=== PATIENT | male | born 1960 | race Caucasian/White ===

== ENCOUNTER 2019-03-26 05:55 | Emergency (ER) | payer BC, SELFPAY ==
--- NOTE | ~2019-03-26 | XR_ITS ---
EXAMINATION: XR chest 1V portable DATE: 03/26/2019 06:28 INDICATION: Arrhythmia, cough and wheezing TECHNIQUE: frontal view of the chest was obtained. COMPARISON: Chest radiograph dated 02/10/2017 FINDINGS: The lungs remain clear with no focal airspace opacities, pulmonary edema, pleural effusion or pneumot horax. The cardiomediastinal silhouette is normal. Visualized bones and soft tissues are unremarkable . IMPRESSION: 1. No acute cardiopulmonary disease. Reviewed, dictated and finalized at location A. RIALS MANAGEMENT MANAGER
[2019-03-26 06:00] VITALS: BP 101/53; PULSE 165; RESP 20; TEMP 36.4; O2SAT 96
--- NOTE | 2019-03-26 06:00 | ECG_ITS ---
Measurements Intervals [place] Rate: 158 P: UT: 0 QRS: -43 QRSD: 90 T: 26 QT: 272 QTc: 442 Interpretive Statements ATRIAL FIBRILLATION WITH RAPID VENTRICULAR RESPONSE LEFT AXIS DEVIATION VOLTAGE CRITERIA FOR LVH POOR R WAVE PROGRESSION, ANTERIOR LEADS ABNORMAL ECG Electronically Signed On 03-26-2019 8:31:32 MILLWRIGHT INSTRUCTOR by Andre Justin D.O.
--- NOTE | 2019-03-26 06:19 | ED.ARRPALP ---
HPI - Arrhythmia/Palpitations General Chief Complaint: Chest Pain <Pancho Kaur MD - Last Filed: 03/26/19 06:38> Stated Complaint: Palpitations <Pancho Kaur MD - Last Filed: 03/26/19 06:38> Time Seen by Provider: 03/26/19 06:00 <Pancho Kaur MD - Last Filed: 03/26/19 06:38> Source: patient and family <Pancho Kaur MD - Last Filed: 03/26/19 06:38> Mode of arrival: ambulatory <Pancho Kaur MD - Last Filed: 03/26/19 06:38> Limitations: no limitations <Pancho Kaur MD - Last Filed: 03/26/19 06:38> History of Present Illness HPI narrative: 58-year-old man with a history of atrial fibrillation status post 2 ablations and asthma comes in today complaining of rapid heart rate that has been intermittent for several days but has been constant since yesterday. Five or 6 days ago he was diagnosed with influenza and had a cough, fever. He has now developed wheezing, some mild chest pressure radiating to his neck, and fatigue. <Pancho Kaur MD - Last Filed: 03/26/19 06:38> MD complaint: rapid heart beat, heart racing and palpitations <Pancho Kaur MD - Last Filed: 03/26/19 06:38> Onset (ago): day(s) (2) <Pancho Kaur MD - Last Filed: 03/26/19 06:38> Duration: intermittent <Pancho Kaur MD - Last Filed: 03/26/19 06:38> Severity: moderate <Pancho Kaur MD - Last Filed: 03/26/19 06:38> Context: occurred during rest <Pancho Kaur MD - Last Filed: 03/26/19 06:38> Arrhythmia history: atrial fibrillation and history of electrical cardioversion <Pancho Kaur MD - Last Filed: 03/26/19 06:38> Associated symptoms: chest pain and cough <Pancho Kaur MD - Last Filed: 03/26/19 06:38> Treatments prior to arrival: beta-rachele (takes daily and took this am) <Pancho Kaur MD - Last Filed: 03/26/19 06:38> Related Data Home Medications: Home Medications Medication Instructions Recorded Confirmed cyclobenzaprine 10 mg PO TID PRN #0 01/29/19 03/26/19 fluticasone propionate 1 spray INTRANASAL BID PRN #0 01/29/19 03/26/19 montelukast [Singulair] 10 mg PO DAILY 01/29/19 03/26/19 multivitamin,ub-wrhl-yfaedogl 1 tablet PO DAILY #0 01/29/19 03/26/19 [Complete Multivitamin] spironolactone 25 mg tablet 25 mg PO DAILY 02/12/19 03/26/19 budesonide-formoterol HFA 80 2 puff INHALATION BID gm 03/21/19 03/26/19 mcg-4.5 mcg/actuation aerosol inhaler carvedilol 6.25 mg tablet 6.25 mg PO BID tablet 03/21/19 03/26/19 rivaroxaban 20 mg tablet 20 mg PO DAILY tablet 03/21/19 03/26/19 <Pancho Kaur MD - Last Filed: 03/26/19 06:38> Allergies/Adverse Reactions: Allergies Allergy/AdvReac Type Severity Reaction Status Date / Time SEAFOOD Allergy Severe Swelling Uncoded 03/05/19 09:10 <Pancho Kaur MD - Last Filed: 03/26/19 06:38> Review of Systems Constitutional: Constitutional: Denies chills, Reports fatigue, Denies fever(s) and Denies weakness <Pancho Kaur MD - Last Filed: 03/26/19 06:38> Eyes: Eyes: Denies change in vision and Denies photophobia <Pancho Kaur MD - Last Filed: 03/26/19 06:38> ENT: Denies dysphagia, Reports nasal congestion and Denies sore throat <Pancho Kaur MD - Last Filed: 03/26/19 06:38> Cardiovascular: Cardiovascular: Reports as per HPI, Reports chest pain and Reports radiating jaw, neck or arm pain <Pancho Kaur MD - Last Filed: 03/26/19 06:38> Respiratory: Respiratory: Reports chest congestion, Reports cough, Reports dyspnea and Reports wheezing <Pancho Kaur MD - Last Filed: 03/26/19 06:38> Gastrointestinal: Gastrointestinal: Denies abdominal pain, Denies diarrhea, Denies nausea and Denies vomiting <Pancho Kaur MD - Last Filed: 03/26/19 06:38> Genitourinary: Genitourinary: Denies dysuria and Denies urinary frequency <Pancho Kaur MD - Last Filed: 03/26/19 06:38> Musculosk
[2019-03-26 06:32] LABS: Basophils Absolute Auto 0.02 K/mm3 (0.00-0.10); Basophils Percent Auto 0.3 % (0.0-1.0); Eosinophils Percent Auto 1.3 % (1.0-6.0); Hematocrit 43.5 % (40.0-54.0); Hemoglobin 14.4 g/dL (14.0-18.0); Immature Granulocyte Absolute 0.03 K/mm3 (0.00-0.00); Immature Granulocyte Percent A 0.4 % (0.0-0.0); Lymphocytes Absolute Auto 2.36 K/mm3 (1.10-4.50); Lymphocytes Percent Auto 31.4 % (18.0-42.0); Mean Corpuscular HGB Conc 33.1 g/dL (32.0-36.0); Mean Corpuscular Hemoglobin 28.5 pg (27.0-31.0); Mean Platelet Volume 10.2 fl (8.7-11.0); Monocytes Absolute Auto 0.85 K/mm3 (0.10-0.90); Monocytes Percent Auto 11.3 % (2.0-11.0); Neutrophils Absolute Auto 4.2 K/mm3 (1.7-7.2); Neutrophils Percent Auto 55.3 % (50.0-70.0); Platelet Count Result 198 K/mm3 (150-420); Red Blood Count 5.06 M/mm3 (4.70-6.10); Red Cell Distribution Width 13.4 % (11.6-14.4); White Blood Count 7.5 K/mm3 (4.8-10.8)
[2019-03-26 06:42] LABS: Add Urine Microscopic? NO; Appearance Urine Clear (Clear); Bilirubin Urine Negative (Negative); Blood Urine Negative (Negative); Color Urine Yellow (Yellow); Glucose Urine UA Negative (Negative); Ketones Urine Negative (Negative); Leukocyte Esterase Ur Negative (Negative); Nitrate Urine Negative (Negative); Protein Urine Negative (Negative); Specific Grav Ur 1.015 (1.010-1.020); Urobilinogen Urine 0.2 mg/dL (0.2-1.0)
[2019-03-26 06:44] LABS: Partial Thromboplastin Time 32.7 SEC (22.3-31.6); Prothrombin Time 10.8 Seconds (9.64-11.0)
[2019-03-26 06:50] LABS: Alanine Aminotransferase 34 U/L (16-63); Albumin Level 3.6 g/dL (3.4-5.0); Alkaline Phosphatase 76 U/L (46-116); Anion Gap 15.4 mmol/L (7-16); Aspartate Amino Transferase 20 U/L (15-37); Bilirubin,Total 0.4 mg/dL (0.00-1.00); Blood Urea Nitrogen 15 mg/dL (7-18); Calcium 9.1 mg/dL (8.5-10.1); Carbon Dioxide 24 mmol/L (21-32); Chloride 106 mmol/L (98-108); Estimated CRCL calculation 104 ml/min; Estimated Glomerular Filt Rate > 60; Glucose 134 mg/dL (70-99); Osmolality Calculated 294 mOsm/kg (285-295); Potassium 4.4 mmol/L (3.5-5.1); Sodium 141 mmol/L (136-145); Total Protein 8.4 g/dL (6.4-8.2); Troponin I < 0.02 ng/mL (0.00-0.056)
[2019-03-26 07:06] VITALS: BP 119/59; PULSE 116; RESP 18; O2SAT 97
[2019-03-26 07:12] LABS: Lactic Acid 1.8 mmol/L (0.4-2.0)
--- NOTE | 2019-03-26 07:19 | PC.NURSE ---
ERP spoke to pt. re: Labs and POC. Will place call to pts. application technical designer Dr. Heart in [place] for consult. Call placed to [facility]
[2019-03-26 08:05] VITALS: BP 98/51; PULSE 117; RESP 18; O2SAT 95
--- NOTE | 2019-03-26 08:07 | PC.NURSE ---
Call back from [facility] business services sales representative Dr. Heart. Spoke to ERP Dr. Peña. Will transfer to [facility]. Awaiting call back from hospitalist for acceptance and transfer.
--- NOTE | 2019-03-26 08:13 | PC.NURSE ---
Call back from Dr. Paulson at [facility]. Accepts for transfer. Paperwork signed. Awaiting call for bed placement.
--- NOTE | 2019-03-26 08:28 | PC.NURSE ---
Call back [facility], report given to Anjana for transfer. Call paged to [facility] for transfer.
[2019-03-26 08:29] VITALS: BP 96/53; PULSE 124; RESP 20; O2SAT 97
--- NOTE | 2019-03-26 08:41 | PC.NURSE ---
Call page to [facility] for pt. transfer. Awaiting [facility] for transfer. Pt. resting, VSS. No c/o.
[2019-03-26 08:55] VITALS: BP 86/59; PULSE 124; RESP 20; O2SAT 97
[2019-03-26] MEDS: SODIUM CHLORIDE 0.9% IV 1,000 ML 125 ML IV CONT (09:01)
--- NOTE | 2019-03-26 09:03 | PC.NURSE ---
Report given to [facility] for transfer. IVF NS odered per ERP to infuse during transfer and titrate Cardizem gtt as needed for pressure. Pt. stable, no c/o ati time of transfer.
== END 2019-03-26 09:04 | disposition short-term general hospital (02) ==
PROVIDERS: Emergency Provider Emergency Medicine; PCP Family Medicine
DX: I48.91 Unspecified atrial fibrillation (principal); Z79.01 Long term (current) use of anticoagulants
CPT/HCPCS: 36415; 71045; 80053; 81003; 83605; 83880; 84484; 85025; 85610; 85730; 87040; 93005; 96365; 96366; 99285; J7030

== ENCOUNTER 2019-06-22 09:46 | Outpatient (CLI) | payer BC, SELFPAY ==
--- NOTE | ~2019-06-22 | MR_ITS ---
EXAMINATION: MR ankle LT wo con DATE: 06/22/2019 11:10 INDICATION: Partial tear of the plantar fascia. TECHNIQUE: Magnetic resonance imaging (MRI) of the left ankle was performed without intravenous contr ast. Sequences included sagittal PD-weighted FS FSE, sagittal PD-weighted FSE, coronal PD-weighted FS FSE, coronal PD-weighted FSE, axial PD-weighted FS FSE, and axial PD-weighted FSE. COMPARISON: None. FINDINGS: Medial ankle ligaments: The superficial and deep components of the deltoid ligament are intact. Lateral ankle ligaments: There is a complete tear of anterior talofibular ligament, which is lax with increased signal intensi ty. Calcaneofibular ligament is small. Posterior talofibular ligament is normal. There are changes of prior sprain of anterior tibiofibular ligament characterized by thickening and increased signal inte nsity. Posterior tibiofibular ligament is normal. Tendons: The medial and anterior ankle tendons are normal. There is mild peroneus longus tendinopathy. There i s a longitudinal split tear of peroneus brevis tendon. There is mild Achilles tendinopathy. Plantar fascia: There is severe thickening of central and lateral bands of plantar fascia with increased signal inten sity, consistent with fasciitis. There is bone marrow edema at the calcaneal attachment. Bones/other: Bone alignment is normal. No fracture. The talar dome is normal. Fluid: There is no joint effusion. IMPRESSION: 1. Plantar fasciitis. Reviewed, dictated and finalized at location A. IMPRESSION: 1. Plantar fasciitis.
== END 2019-06-22 09:47 | disposition home or self-care (01) ==
PROVIDERS: PCP Family Medicine; Visit Provider Podiatrist Foot & Ankle Surgery
DX: S96.912A Strain of unspecified muscle and tendon at ankle and foot level, left foot, initial encounter (principal)
CPT/HCPCS: 73721

== ENCOUNTER 2019-07-04 00:26 | Outpatient (CLI) | payer BC, SELFPAY ==
[2019-07-04 18:06] LABS: SARS-CoV-2 RNA PCR Negative
== END 2019-07-04 00:27 | disposition home or self-care (01) ==
LOC: ANHCOVIDDT 00:26
PROVIDERS: PCP Family Medicine; Visit Provider Podiatrist Foot & Ankle Surgery
DX: Z01.812 Encounter for preprocedural laboratory examination (principal); Z20.828 Contact with and (suspected) exposure to other viral communicable diseases
CPT/HCPCS: 87635; C9803; U0003

== ENCOUNTER 2019-07-04 08:01 | Outpatient (CLI) | payer BC, SELFPAY ==
[2019-07-04 08:50] LABS: Blood Urea Nitrogen 17 mg/dL (9-20); Carbon Dioxide 28 mmol/L (22-30); Chloride 105 mmol/L (98-107); Estimated Glomerular Filt Rate > 60; Glucose 113 mg/dL (75-110); Potassium 4.6 mmol/L (3.4-5.0); Sodium 139 mmol/L (137-145)
== END 2019-07-04 08:02 | disposition home or self-care (01) ==
LOC: ANHSURGERY 08:04
PROVIDERS: Anesthesiology; PCP Family Medicine; Visit Provider Podiatrist Foot & Ankle Surgery
DX: Z79.899 Other long term (current) drug therapy (principal)
CPT/HCPCS: 36415; 80048

== ENCOUNTER 2019-07-06 00:47 | Day surgery (SDC) | payer BC, SELFPAY ==
[2019-07-03 13:41] VITALS: BMI 39.4
[2019-07-06] VITALS (7 sets, daily range): BP systolic 123–140; BP diastolic 57–85; PULSE 58–79; RESP 10–16; TEMP 36.8–37.2; O2SAT 17–99
[2019-07-06] MEDS: LACTATED RINGERS 1,000 ML 30 ML IV CONT (06:40)
--- NOTE | 2019-07-06 07:04 | WPDANESEPPF ---
Anes - Initial Pre Proc Eval Procedure: Operation Date: 07/06/19 07:30 Proposed Procedures p Partial Plantar Fasciectomy Left Foot - Toni Momin JR, MD Date/Time: 07/06/19 07:04 Surgeon: Toni Momin JR, MD Pre Op Diagnosis: Proximal Plantar Fasciitis Left Foot Patient Data Age: 58 Gender: M Height: 5 ft 10 in Weight: 124.74 kg Allergies Allergy/AdvReac Type Severity Reaction Status Date / Time SEAFOOD Allergy Severe Swelling Uncoded 07/03/19 13:42 Home Medications Medication Instructions Recorded Confirmed Type fluticasone propionate 1 spray INTRANASAL BID PRN #0 01/29/19 07/03/19 History montelukast [Singulair] 10 mg PO QPM 01/29/19 07/03/19 History multivitamin,sx-clst-rrmnmujc 1 tablet PO DAILY #0 01/29/19 07/03/19 History [Complete Multivitamin] spironolactone 25 mg tablet 25 mg PO DAILY 02/12/19 07/03/19 History budesonide-formoterol HFA 80 2 puff INHALATION BID PRN gm 03/21/19 07/03/19 History mcg-4.5 mcg/actuation aerosol inhaler carvedilol 6.25 mg tablet 6.25 mg PO BID tablet 03/21/19 07/03/19 History rivaroxaban 20 mg tablet 20 mg PO DAILY tablet 03/21/19 07/03/19 History oxycodone-acetaminophen 1 tablet PO DIRECTED PRN 07/03/19 07/03/19 History Patient hx anesthesia problems: none Family hx anesthesia problems: none PMFSH Past Medical History Medical History Alcohol use drinks alcohol on a regular basis. when he drinks, the average quantity of alcohol is 5 drinks Arthritis RIGHT ANKLE/KNEE/BACK Asthma USES INHALER AND NOSE SPRAY PRN Atrial fibrillation TAKES MED; H/O ABLATION X 2, 2016, 2017 HTN (hypertension) Obstructive sleep apnea on CPAP USES CPAP EVERY NIGHT Vision loss Surgical History Surgical History History of cholecystectomy Cryoballoon Ablation 07/05/17 No history of previous surgery Family History Family History Father Heart disease Hypertension Arthritis Acute myocardial infarction Mother No problems noted. Social History Social History Smoking status: Never smoker Alcohol intake: current Substance use type: unknown Gender identity (if verbalized by the patient): Male Anes - Eval Final PreProcedure Day of Procedure 07/06/19 07:04 Patient weight: obese Heart: irregular rhythm Lungs: clear to auscultation Airway: Mallampati scale class II Neurological: alert and oriented Last oral intake: >/= 8 hours ASA classification: III Emergent: no Anesthetic plan: proceed Anesthesia type and monitoring: general (givs vs lma) GIVS and LMA and standard monitoring Informed Consent: The patient's anesthetic plan and its attendant risks and benefits were discussed with the patient/family/POA. Questions were solicited and answers provided to the satisfaction of the patient/family/POA.
--- NOTE | 2019-07-06 07:19 | WPDHPUPDATE1 ---
History and Physical Update Update Date/Time: 07/06/19 07:19 History and Physical has been reviewed, including an updated exam of the patient. There are NO changes in the patient's condition. Risks, benefits, and alternatives have been discussed and questions answered. Patient agrees to proceed with procedure.
[2019-07-06] MEDS: ceFAZolin 3 GM/D5W 100 ML 100 ML IVPB (07:26)
--- NOTE | 2019-07-06 09:20 | PM.OP ---
Procedure Note - Brief Procedure Note - Brief Date of procedure: 07/06/19 Pre-op diagnosis: Proximal Plantar Fasciitis Left Foot Post-op diagnosis: same Procedure performed: Partial plantar fasciectomy left foot Anesthesia: GLMA Surgeon: Toni Momin JR, DPM Estimated blood loss (mL): 1 Complications: No immediate complications Condition: stable Disposition: same day
--- NOTE | 2019-07-06 14:36 | OP_ITS ---
DATE OF PROCEDURE: 07/06/2019 PREOPERATIVE DIAGNOSIS: Recalcitrant proximal plantar fasciitis, left foot. POSTOPERATIVE DIAGNOSIS: Recalcitrant proximal plantar fasciitis, left foot. PROCEDURE: Partial plantar fasciectomy, left foot. PATHOLOGY: None. ANESTHESIA: General LMA with local. HEMOSTASIS: Pneumatic ankle tourniquet at 250 mmHg. ESTIMATED BLOOD LOSS: Minimal. MATERIALS USED: 3-0 Vicryl, 2-0 Prolene, and 3-0 Prolene. INJECTABLES: 20 cc of Exparel injected preoperatively. COMPLICATIONS: None. PROCEDURE IN DETAIL: Under mild sedation, the patient was brought into operating room, placed on the operating room table in the supine position. Pneumatic ankle tourniquet was placed about the patient's left ankle. Following general LMA anesthesia, local anesthesia was obtained about the left medial ankle where 20 cc of Exparel was infiltrated along the tibial nerve. The foot was then scrubbed, prepped, and draped in the usual aseptic manner. An Esmarch bandage was then used to examine the patient's left foot and the pneumatic ankle tourniquet was then inflated. Surgery began in the following manner. Attention was directed to the plantar aspect of the left foot. The hallux was dorsiflexed in order to elicit the windlass effect and make prominent the medial band of the plantar fascia. Next, the medial band of the plantar fascia was extrapolated proximally at its origin to the calcaneus. An incision was made just distal to the origin of the medial band of the plantar fascia extending distally 3 cm. Incision was continued deep down through subcutaneous tissues using sharp and blunt dissection. All bleeders were cauterized as necessary. Next, a Weitlaner was used to retract the plantar fat pad medially and laterally exposing the medial band of the plantar fascia. Next, a 15 blade was used to resect it approximately 4 mm of the medial band of the plantar fascia and a portion of the central band of the plantar fascia. After release of the plantar fascia, the deep intrinsic muscle bellies were visualized. The wound site was then flushed with copious amounts of sterile saline. Next, the subcutaneous fat was reapproximated and coapted utilizing 3-0 Vicryl. Next, the subcutaneous structures were reapproximated and coapted utilizing 3-0 Vicryl. Next, the skin was reapproximated and coapted utilizing 2-0 Prolene in vertical mattress suture fashion technique to serve as retention sutures and then, finally a 3-0 Prolene in simple interrupted suture technique to help reapproximate the skin adequately. Upon completion of the procedure, the incision was dressed with Adaptic, 4 x 4's, Kerlix, and Coban. The pneumatic ankle tourniquet was then deflated and a prompt hyperemic response was noted to all digits of the left foot. A Cam Walker boot was then applied. The patient did very well with the procedure and the anesthesia. He was transferred to the recovery room with vital signs stable and vascular status intact to all toes of the left foot. Following period of postoperative monitoring, the patient will be discharged home on the following written and oral postoperative instructions: 1. Keep the dressing clean, dry, and intact. 2. Avoid excessive ambulation. 3. Ice and elevate the left foot when at rest. 4. The patient should wear his Cam Walker boot at all times with ambulating and may also use crutches as tolerated. 5. The patient to contact Dr. Momin for all postop care if any problems arise. 6. Prescriptions were written for Percocet 5/325 dispensed 30 to be taken 1 p.o. q.4 to 6 hours as needed for severe pain. The patient should also start taking his Xarelto 20 mg that was taken before surgery to prevent DVT. Tin I MT: AQu
== END 2019-07-06 10:01 | disposition home or self-care (01) ==
PROVIDERS: PCP Family Medicine; Visit Provider Podiatrist Foot & Ankle Surgery
PROC: (CPT 28119; principal; 2019-07-06 07:30)
DX: M72.2 Plantar fascial fibromatosis (principal); J45.909 Unspecified asthma, uncomplicated; I48.91 Unspecified atrial fibrillation; G47.33 Obstructive sleep apnea (adult) (pediatric); I10 Essential (primary) hypertension; Z79.01 Long term (current) use of anticoagulants; E66.9 Obesity, unspecified; Z68.39 Body mass index [BMI] 39.0-39.9, adult
CPT/HCPCS: 28060; C9290; J0690; J1100; J1885; J2250; J2405; J2704; J3010; J7120

== ENCOUNTER 2019-10-29 16:17 | Outpatient (CLI) | payer BC, SELFPAY ==
[2019-10-29 16:51] LABS: Hemoglobin A1C 5.6 % (<5.7)
[2019-10-29 18:00] LABS: Cholesterol 160 mg/dL (0-200); HDL Direct 43 mg/dL (40-60); LDL Cholesterol Calculated 99 mg/dL (<130); Triglycerides 89 mg/dL (0-150)
[2019-11-01 22:00] LABS: PSA, Free 0.05 ng/mL; PSA, Total 0.2 ng/mL (<=4.0)
== END 2019-10-29 16:18 | disposition home or self-care (01) ==
LOC: CHSLAB 16:20
PROVIDERS: PCP Family Medicine; Visit Provider Family Medicine
DX: R73.09 Other abnormal glucose (principal); I10 Essential (primary) hypertension; R35.0 Frequency of micturition
CPT/HCPCS: 36415; 80061; 83036; 84153; 84154

== ENCOUNTER 2020-09-10 16:16 | Outpatient (CLI) | payer BC, SELFPAY ==
[2020-09-10 16:31] LABS: Basophils Absolute Auto 0.03 K/mm3 (0.00-0.10); Basophils Percent Auto 0.3 % (0.0-1.0); Eosinophils Percent Auto 3.2 % (1.0-6.0); Hematocrit 42.9 % (40.0-54.0); Hemoglobin 13.8 g/dL (14.0-18.0); Immature Granulocyte Absolute 0.03 K/mm3 (0.00-0.00); Immature Granulocyte Percent A 0.3 % (0.0-0.0); Lymphocytes Absolute Auto 2.14 K/mm3 (1.10-4.50); Lymphocytes Percent Auto 22.7 % (18.0-42.0); Mean Corpuscular HGB Conc 32.2 g/dL (32.0-36.0); Mean Corpuscular Hemoglobin 28.6 pg (27.0-31.0); Mean Corpuscular Volume 88.8 fL (78.0-102.0); Mean Platelet Volume 9.8 fl (8.7-11.0); Monocytes Absolute Auto 1.13 K/mm3 (0.10-0.90); Neutrophils Absolute Auto 5.8 K/mm3 (1.7-7.2); Neutrophils Percent Auto 61.5 % (50.0-70.0); Platelet Count Result 249 K/mm3 (150-420); Red Blood Count 4.83 M/mm3 (4.70-6.10); Red Cell Distribution Width 13.5 % (11.6-14.4); White Blood Count 9.4 K/mm3 (4.8-10.8)
[2020-09-10 17:06] LABS: Anion Gap 11 mmol/L (8-16); Blood Urea Nitrogen 20 mg/dL (7-18); Calcium 9.2 mg/dL (8.5-10.1); Carbon Dioxide 28 mmol/L (21-32); Chloride 104 mmol/L (98-108); Estimated Glomerular Filt Rate > 60; Glucose 90 mg/dL (70-99); Osmolality Calculated 298 mOsm/kg (285-295); Potassium 4.5 mmol/L (3.5-5.1); Sodium 143 mmol/L (136-145)
== END 2020-09-10 16:17 | disposition home or self-care (01) ==
LOC: CHSLAB 16:21
PROVIDERS: PCP Family Medicine
DX: R07.2 Precordial pain (principal); I10 Essential (primary) hypertension; Z01.812 Encounter for preprocedural laboratory examination
CPT/HCPCS: 36415; 80048; 85025

== ENCOUNTER 2021-02-21 07:14 | Outpatient (CLI) | payer BC, SELFPAY ==
[2021-02-21 08:19] LABS: Alanine Aminotransferase 29 U/L (16-63); Aspartate Amino Transferase 10 U/L (15-37); Cholesterol 163 mg/dL (0-200); HDL Direct 37 mg/dL (40-60); LDL Cholesterol Calculated 107 mg/dL (<130); Triglycerides 97 mg/dL (0-150)
== END 2021-02-21 07:15 | disposition home or self-care (01) ==
PROVIDERS: PCP Family Medicine
DX: E78.2 Mixed hyperlipidemia (principal); Z79.899 Other long term (current) drug therapy
CPT/HCPCS: 36415; 80061; 84450; 84460

== ENCOUNTER 2021-07-22 10:24 | Outpatient (RCR) | payer BC, SELFPAY ==
--- NOTE | 2021-07-22 12:12 | PTOPEVAL ---
Thank you for referring Anand Bishop to [facility].? The patient is scheduled to be seen for therapy? 2x/week for 10 visits. Please review, sign, date and return this plan of care PAULA. I agree with and certify that the following plan of care is medically necessary. Referring Physician Date Admitting Provider: Attending Provider: Adam Alvarez DO Referring Provider: *PT Outpatient Evaluation Start: 07/22/21 09:34 Freq: Status: Active Protocol: Document 07/22/21 10:31 [facility] (Rec: 07/22/21 12:06 [facility] [id number]) Therapy Assessment Status Assessment Status Assessment Status Evaluation Outpatient Past Medical History Neurological History Hx Neurological Disorders No Significant History Cardiovascular History Hx Atrial Fibrillation Yes: H/O ABLATION X 2, 2016, 2017 Hx Hypertension Yes Respiratory History Hx Asthma Yes Hx Sleep Apnea Yes: USES CPAP @[facility] Gastrointestinal History Hx Cholecystectomy Yes: 2008 Genitourinary History Hx Genitourinary Disorders No Significant History Musculoskeletal History Hx Arthritis Yes: RIGHT ANKLE/KNEE/BACK Hx Back Pain Yes Hx Orthopedic Surgery Yes: RT KNEE ARTHROSCOPY Hx Other Musculoskeletal Disorders Yes: LT FOOT PLANTAR FASCIITIS Hematological History Hx Hematological Disorders No Significant History Endocrine History Hx Endocrine Disorders No Significant History HEENT History Hx Sinus Problems Yes: FROM ALLERGIES Integumentary History Hx Skin Disorders No Significant History Reproductive History Hx Other Reproductive Disorders Yes: VASECTOMY Psychosocial History Hx Psychiatric Disorders No Significant History Pain History History of Any Previous or Ongoing No Significant History Instance of Pain Anesthesia History Hx Anesthesia Reactions No Significant History Evaluation Information Problem Diagnosis L sciatica Onset 07/15/21 Subjective Information Pt reports that 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 His back pain started that day, but his radicular symptoms began on Tuesday. Reports that pain started on Tuesday but radicular symptoms started on Tuesday. Reports N/T and pain on left side mostly in glute but can radiate all the way down to foot. He reports
== END 2021-08-27 18:23 | disposition home or self-care (01) ==
LOC: CHSPT 10:24
PROVIDERS: PCP Family Medicine; Visit Provider Family Medicine
DX: M54.30 Sciatica, unspecified side (principal)
CPT/HCPCS: 97014; 97110; 97140; 97161; 97530; G0283

== ENCOUNTER 2021-08-11 10:01 | Outpatient (CLI) | payer BC, SELFPAY ==
--- NOTE | ~2021-08-11 | MR_ITS ---
EXAMINATION: MR lumbar spine wo con DATE: 08/11/2021 11:20 INDICATION: Chronic lower back pain left leg and foot pain . TECHNIQUE: Magnetic resonance imaging (MRI) of the lumbar spine was performed without intravenous con trast. Sequences included sagittal T2-weighted FSE, sagittal T2-weighted FS FSE, sagittal T1-weighted FSE, and axial T2-weighted FSE. COMPARISON: None FINDINGS: The last fully formed and hydrated disc is designated L5-S1. No suspicious infiltrative or focal marrow signal. Conus terminates at L1-L2. Multilevel disc height loss and dehydration. The foll owing disc levels are specifically discussed: T11-T12: The disc does not extend beyond the endplate margin. There is no facet joint osteoarthritis. There is no neural foraminal stenosis. There is no central canal stenosis. T12-L1: The disc does not extend beyond the endplate margin. There is no facet joint osteoarthritis. There is no neural foraminal stenosis. There is no central canal stenosis. L1-L2: The disc does not extend beyond the endplate margin. There is mild facet joint osteoarthritis. There is no neural foraminal stenosis. There is no central canal stenosis. L2-L3: Large diffuse bulge with a posterior focal rent in the annulus. There is moderate facet joint osteoarthritis. There is mild right and moderate left neural foraminal stenosis. There is moderate ce ntral canal stenosis. L3-L4: Large diffuse bulge with a focal posterior rent in the annulus. There is moderate facet joint osteoarthritis. There is moderate bilateral neural foraminal stenosis. There is moderate central laci l stenosis. L4-L5: Moderate diffuse bulge with a minimal 2 mm central protrusion. There is moderate facet joint o steoarthritis. There is moderate right and mild left neural foraminal stenosis. There is mild central canal stenosis. L5-S1: Moderate diffuse bulge There is moderate facet joint osteoarthritis. There is mild right and s evere left neural foraminal stenosis. There is no central canal stenosis. IMPRESSION: 1. Severe left L5-S1 neural foraminal narrowing caused by combination of degenerative disc and facet changes. 2. Moderate central canal narrowing at L3-4 and L4-5 secondary to a combination of degenerative disc and facet changes. 3. Level degenerative disc disease, facet arthropathy, and lesser degrees of neural foraminal narrowi ng, described above. Reviewed, dictated and finalized at location K. IMPRESSION: 1. Severe left L5-S1 neural foraminal narrowing caused by combination of degene rative disc and facet changes. 2. Moderate central canal narrowing at L3-4 and L4-5 secondary to a combination of degenerative disc and facet changes. 3. Level degenerative disc disease, facet arthropathy, and lesser degrees of ne ural foraminal narrowing, described above.
== END 2021-08-11 10:02 | disposition home or self-care (01) ==
LOC: CHSIMG 10:03
PROVIDERS: PCP Family Medicine
DX: M54.50 Low back pain, unspecified (principal); G89.29 Other chronic pain; R53.1 Weakness
CPT/HCPCS: 72148

== ENCOUNTER 2022-02-16 07:05 | Outpatient (CLI) | payer SELFPAY ==
[2022-02-16 08:24] LABS: Alanine Aminotransferase 28 U/L (16-63); Aspartate Amino Transferase 13 U/L (15-37); Cholesterol 172 mg/dL (0-200); HDL Direct 37 mg/dL (40-60); LDL Cholesterol Calculated 108 mg/dL (<130); Triglycerides 136 mg/dL (0-150)
== END 2022-02-16 07:06 | disposition home or self-care (01) ==
PROVIDERS: PCP Family Medicine
DX: Z00.00 Encounter for general adult medical examination without abnormal findings (principal); E78.2 Mixed hyperlipidemia
CPT/HCPCS: 36415; 80061; 84450; 84460

== ENCOUNTER 2023-03-07 12:08 | Outpatient (CLI) | payer BC, SELFPAY ==
[2023-03-07 12:58] LABS: SARS-CoV-2 RNA PCR Negative (Negative)
[2023-03-07 13:02] LABS: Influenza A QL RT-PCR Negative (Negative); Influenza B QL RT-PCR Negative (Negative); Strep Group A RT-PCR NOT DETECTED (Negative)
== END 2023-03-07 12:09 | disposition home or self-care (01) ==
LOC: CHSLAB 12:10
PROVIDERS: PCP Family Medicine; Visit Provider Family Medicine
DX: R05.9 Cough, unspecified (principal); Z20.822 Contact with and (suspected) exposure to COVID-19
CPT/HCPCS: 87636; 87651

== ENCOUNTER 2023-03-09 09:40 | Outpatient (CLI) | payer BC, SELFPAY ==
[2023-03-09 09:55] LABS: Basophils Absolute Auto 0.05 K/mm3 (0.00-0.10); Basophils Percent Auto 0.6 % (0.0-1.0); Eosinophils Absolute Auto 0.35 K/mm3 (0.02-0.50); Eosinophils Percent Auto 4.2 % (1.0-6.0); Hematocrit 45.5 % (40.0-54.0); Hemoglobin 14.5 g/dL (14.0-18.0); Immature Granulocyte Absolute 0.04 K/mm3 (0.00-0.00); Immature Granulocyte Percent A 0.5 % (0.0-0.0); Lymphocytes Absolute Auto 1.83 K/mm3 (1.10-4.50); Mean Corpuscular HGB Conc 31.9 g/dL (32.0-36.0); Mean Platelet Volume 9.9 fl (8.7-11.0); Monocytes Absolute Auto 0.92 K/mm3 (0.10-0.90); Neutrophils Absolute Auto 5.1 K/mm3 (1.7-7.2); Neutrophils Percent Auto 61.7 % (50.0-70.0); Platelet Count Result 269 K/mm3 (150-420); Red Blood Count 5.17 M/mm3 (4.70-6.10); Red Cell Distribution Width 13.4 % (11.6-14.4); White Blood Count 8.3 K/mm3 (4.8-10.8)
[2023-03-09 10:49] LABS: Alanine Aminotransferase 25 U/L (16-63); Albumin Level 3.8 g/dL (3.4-5.0); Alkaline Phosphatase 75 U/L (46-116); Anion Gap 9 mmol/L (8-16); Aspartate Amino Transferase 12 U/L (15-37); Bilirubin,Total 0.5 mg/dL (0.00-1.00); Blood Urea Nitrogen 18 mg/dL (7-18); Calcium 8.9 mg/dL (8.5-10.1); Carbon Dioxide 29 mmol/L (21-32); Chloride 102 mmol/L (98-108); Cholesterol 190 mg/dL (0-200); Estimated Glomerular Filt Rate > 60; Glucose 114 mg/dL (70-99); HDL Direct 41 mg/dL (40-60); LDL Cholesterol Calculated 116 mg/dL (<130); Osmolality Calculated 292 mOsm/kg (285-295); Sodium 140 mmol/L (136-145); Total Protein 8.9 g/dL (6.4-8.2); Triglycerides 163 mg/dL (0-150)
[2023-03-09 10:50] LABS: Thyroid Stimulating Hormone Reflex 2.39 u/IU/mL (0.36-3.74)
== END 2023-03-09 09:41 | disposition home or self-care (01) ==
LOC: CHSLAB 09:42
PROVIDERS: PCP Family Medicine; Visit Provider Family Medicine
DX: E11.9 Type 2 diabetes mellitus without complications (principal); I10 Essential (primary) hypertension
CPT/HCPCS: 36415; 80053; 80061; 83036; 84443; 85025

== ENCOUNTER 2023-03-11 11:45 | Outpatient (CLI) | payer BC, SELFPAY ==
[2023-03-11 12:44] LABS: Prostate Specific Antigen 0.4 ng/mL (< OR = 4.0)
== END 2023-03-11 11:46 | disposition home or self-care (01) ==
LOC: CHSLAB 11:48
PROVIDERS: PCP Family Medicine; Visit Provider Family Medicine
DX: Z12.5 Encounter for screening for malignant neoplasm of prostate (principal)
CPT/HCPCS: 36415; 84153; G0103

== ENCOUNTER 2023-08-08 08:34 | Outpatient (CLI) | payer BC, SELFPAY ==
[2023-08-08 09:25] LABS: Anion Gap 8 mmol/L (4-12); Blood Urea Nitrogen 13 mg/dL (7-18); Calcium 8.9 mg/dL (8.5-10.1); Carbon Dioxide 29 mmol/L (21-32); Chloride 103 mmol/L (98-108); Estimated Glomerular Filt Rate > 60; Glucose 117 mg/dL (70-99); Osmolality Calculated 291 mOsm/kg (285-295); Potassium 4.9 mmol/L (3.5-5.1); Sodium 140 mmol/L (136-145)
== END 2023-08-08 08:35 | disposition home or self-care (01) ==
LOC: CHSLAB 08:38
PROVIDERS: PCP Family Medicine
DX: I42.9 Cardiomyopathy, unspecified (principal)
CPT/HCPCS: 36415; 80048

== ENCOUNTER 2024-09-19 09:27 | Outpatient (CLI) | payer OTHER, SELFPAY ==
--- NOTE | ~2024-09-19 | US_ITS ---
EXAMINATION:US venous doppler LE LT INDICATION:Status post fall one week ago. Knee/leg swelling and redness. TECHNIQUE: Multiple grayscale, color flow and Doppler images of the left lower extremity deep venous systems were obtained and reviewed. COMPARISON:None available at this time FINDINGS: The common femoral, superficial femoral and popliteal veins demonstrate normal respiratory variation, augmentation and compressibility. Color flow is also seen within the posterior tibial, pe roneal, greater saphenous and profunda veins. IMPRESSION: 1: No lower extremity deep venous thrombosis. Reviewed, dictated and finalized at location A.
--- OUTSIDE RECORDS SUMMARY | 2024-09-19 09:33 | XMS_ITS | Patient Health Record ---
Author Organization [facility] Address [address] [place], [place] [id number] Care Team Providers Care Mechanical Research Engineer Name Role Phone LU MELCHOR Unavailable [phone] Shavon Segovia Unavailable Unavailable Reason For Referral No Information Plan Of Treatment No Information Insurance Providers Payer Name Payer Address Payer Phone Subscriber Number Group Number Insured Name Patient Relationship to Insured Coverage Start Date Coverage End Date [facility] ([facility]) ATTN CLAIMS [address] [place] [address] [id number] NELIA BLANCA Self - patient is the insured
== END 2024-09-19 09:28 | disposition home or self-care (01) ==
LOC: CHSIMG 09:28
PROVIDERS: PCP Family Medicine; Visit Provider Family Medicine
DX: I82.402 Acute embolism and thrombosis of unspecified deep veins of left lower extremity (principal)
CPT/HCPCS: 93971